=== PATIENT | female | born 1990 | race Caucasian/White ===

== ENCOUNTER 2019-03-13 07:48 | Day surgery (SDC) | payer MEDICAID ==
[~2019-03-13] VITALS: Ht 172.7 cm; Wt 62.7 kg
[2019-03-13 07:55] VITALS: BP 118/72
[2019-03-13] MEDS ORDERED: EST1T PO (08:16)
[2019-03-13] MEDS ORDERED: DICY10CA88 PO (08:17)
[2019-03-13] MEDS ORDERED: SPIR100T5 PO (08:17)
[2019-03-13] MEDS ORDERED: fentaNYL/PF 50MCG/1 ML 2ML syringe ONE (08:18)
[2019-03-13] MEDS ORDERED: MIDAZolam 5mg/5ml vial ONE (08:18)
[2019-03-13] MEDS ORDERED: LAMO200T2 PO (08:18)
[2019-03-13] MEDS ORDERED: LIDOcaine Viscous 15ml cup ONE (08:18)
[2019-03-13 10:02] VITALS: BP 114/67
[2019-03-13 10:12] VITALS: BP 100/53
[2019-03-13 10:22] VITALS: BP 109/65
[2019-03-13 10:32] VITALS: BP 107/65
== END 2019-03-13 10:35 | disposition home or self-care (01) ==
LOC: GI LAB 07:48
PROVIDERS: ATTEND Internal Medicine Gastroenterology
DX: R13.10 Dysphagia, unspecified (principal); K21.0 Gastro-esophageal reflux disease with esophagitis; Z79.899 Other long term (current) drug therapy
CPT/HCPCS: 43248; 99152; J2250; J3010; J7040; 99153; A4620; J7120

== ENCOUNTER 2020-03-13 10:51 | Day surgery (SDC) | payer MEDICAID ==
[2020-03-07 16:00] LABS: BASOPHILS # (AUTO) 0.1 X10'3 (0-0.2); BASOPHILS % (AUTO) 0.6 % (0-1); EOSINOPHILS % (AUTO) 0.4 % (0-6); LYMPHOCYTES # (AUTO) 1.5 X10'3 (1.1-4.8); LYMPHOCYTES % (AUTO) 15.9 % (21-51); MEAN CORPUSCULAR HEMOGLOBIN 30.3 PG (27.0-31.0); MEAN CORPUSCULAR HGB CONC 34.9 g/dL (33.0-36.5); MEAN CORPUSCULAR VOLUME 86.9 FL (78-98); MEAN PLATELET VOLUME 8.4 FL (7.4-10.4); MONOCYTES # (AUTO) 0.7 X10'3 (0-0.9); MONOCYTES % (AUTO) 7.9 % (2-12); NEUTROPHILS % (AUTO) 75.2 % (42-75); PRE OP HEMATOCRIT 39.4 % (35.0-45.0); PRE OP HEMOGLOBIN 13.7 g/dL (12.0-16.0); PRE OP PLATELET COUNT 241 X10'3 (140-440); RED BLOOD COUNT 4.53 X10'6 (4.20-5.60); RED CELL DISTRIBUTION WIDTH 12.9 % (11.5-14.5)
[2020-03-07 16:14] LABS: ALBUMIN 4.2 G/DL (3.4-5.0); ALBUMIN/GLOBULIN RATIO 1.1 (1.1-1.5); ALKALINE PHOSPHATASE 48 IU/L (46-116); BLOOD UREA NITROGEN 8 MG/DL (7-18); BUN/CREATININE RATIO 9.5 (6.6-38.0); CALCIUM 8.9 MG/DL (8.5-10.1); CHLORIDE 102 MMOL/L (99-107); CREATININE 0.84 MG/DL (0.40-0.90); PRE OP ALT 10 U/L (30-65); PRE OP ANION GAP 6 (8-16); PRE OP AST 18 U/L (10-37); PRE OP BILIRUB, TOTAL 0.4 MG/DL (0.0-1.0); PRE OP GLUCOSE 89 MG/DL (70-104); PRE OP POTASSIUM 4.2 MMOL/L (3.4-5.1); PRE OP SODIUM 137 MMOL/L (135-145); TOTAL CARBON DIOXIDE 28.7 MMOL/L (24-32); TOTAL PROTEIN 7.9 G/DL (6.4-8.2); eGFR 80 ML/MIN
[2020-03-13] VITALS (11 sets, daily range): BP systolic 105–130; BP diastolic 60–72
[~2020-03-13] VITALS: Ht 172.7 cm; Wt 60.0 kg
[~2020-03-13 10:51] MED LIST: BUPIVAcaine/PF 2.5 mg/ml (0.25%) 30ml vial ONE; EST1T PO; INDOCYANINE GREEN 25 MG/10 ML VIAL IV ONE; LAMO200T2 PO; LIDOcaine 1% 30ml preserv. free vial ONE; OMEP-50 PO; SPIR100T5 PO; ceFAZolin 2gm in dextrose, iso 50 ML IV ONE; famotidine 20mg tablet PO ONE; ringers solution, lacted 1,000 ML IV SCH
[2020-03-13] MEDS ORDERED: LIDOcaine 1% 30ml preserv. free vial ONE (10:56)
[2020-03-13] MEDS ORDERED: BUPIVAcaine/PF 2.5 mg/ml (0.25%) 30ml vial ONE (10:56)
[2020-03-13] MEDS ORDERED: sevoflurane 250ml liquid IH ONE (11:16)
[2020-03-13] MEDS ORDERED: midazolam 2 mg/2 ml injection ONE (11:24)
[2020-03-13] MEDS ORDERED: fentaNYL /PF 50mcg/ml 5ml ampule ONE (11:24)
[2020-03-13] MEDS ORDERED: rocuronium 10mg/ml inj IV ONE (11:40)
[2020-03-13] MEDS ORDERED: LIDOcaine 2% (20mg/ml) 5ml vial ONE (11:40)
[2020-03-13] MEDS ORDERED: propofol inj 20 ML IV ONE (11:40)
[2020-03-13] MEDS ORDERED: dexamethasone sod phosphate 4mg/ml inj. ONE (11:40)
[2020-03-13] MEDS ORDERED: ondansetron/PF 4mg/2ml inj ONE (11:40)
[2020-03-13] MEDS ORDERED: ringers solution, lacted 1,000 ML IV SCH (11:41)
[2020-03-13] MEDS ORDERED: hydrALAZINE 20mg/ml inj. IV PRN (11:45)
[2020-03-13] MEDS ORDERED: morphine 4 MG/ML inj SYRINge IV PRN (11:45)
[2020-03-13] MEDS ORDERED: acetaminophen 1,000mg/100ml IV 100 ML IV PRN (11:45)
[2020-03-13] MEDS ORDERED: labetalol 20mg/4ml (5mg/ml) syringe IV PRN (11:45)
[2020-03-13] MEDS ORDERED: morphine 2 MG/ML inj. syringe IV PRN (11:45)
[2020-03-13] MEDS ORDERED: meperidine/PF 25mg/ml syringe IV PRN (11:45)
[2020-03-13] MEDS ORDERED: ondansetron/PF 4mg/2ml inj IV PRN (11:45)
[2020-03-13] MEDS ORDERED: proCHLORperazine 10 MG/2 ml inj IV PRN (11:45)
[2020-03-13] MEDS ORDERED: HYDROmorphone inj. 0.5 MG/0.5 ML DISP.SYRIN IV PRN ×2 (11:45)
[2020-03-13] MEDS ORDERED: neostigmine methylsulfate 1 MG/ML 10ml vial ONE (12:17)
[2020-03-13] MEDS ORDERED: glycopyrrolate 0.2mg/ml inj ONE (12:17)
[2020-03-13] MEDS ORDERED: sugammadex 200mg/2ml injection IV ONE (12:35)
--- NOTE | 2020-03-13 12:46 | NUR ---
Received from OR via EDIN, accompanied by Anesthesiologist KOBI and report given by Anesthesiolgist. PT W/ 20G ANAIS VILLALTA RUNNING LR @ 100. 4 ABD BANDAIDS ALL CDI, WILL MEDICATE FOR PAIN. VSS. Addendum: 03/13/20 at 1256 by Lester Saleem RN, RN Amended: Links added.
[2020-03-13] MEDS ORDERED: HYDROcodone/acetaminophen 5mg/325mg tablet PO PRN (12:55)
== END 2020-03-13 14:20 | disposition home or self-care (01) ==
LOC: PAS 10:51
PROVIDERS: ATTEND Surgery
DX: K80.10 Calculus of gallbladder with chronic cholecystitis without obstruction (principal); F31.9 Bipolar disorder, unspecified; F41.9 Anxiety disorder, unspecified; Z88.2 Allergy status to sulfonamides; Z88.8 Allergy status to other drugs, medicaments and biological substances; F17.290 Nicotine dependence, other tobacco product, uncomplicated; Z79.899 Other long term (current) drug therapy; Z20.828 Contact with and (suspected) exposure to other viral communicable diseases; Z87.890 Personal history of sex reassignment; Z83.6 Family history of other diseases of the respiratory system; Z83.3 Family history of diabetes mellitus; Z80.3 Family history of malignant neoplasm of breast; Z82.49 Family history of ischemic heart disease and other diseases of the circulatory system
CPT/HCPCS: 36415; 47563; 80053; 82948; 85025; 87635; C9399; J0131; J1100; J1170; J2001; J2175; J2250; J2270; J2405; J2704; J2710; J3010; J3490; J7120; S2900; A4215; A4618; A7000

== ENCOUNTER 2020-03-14 01:01 | Emergency (ER) | payer MEDICAID ==
[~2020-03-14] VITALS: Ht 172.7 cm; Wt 63.3 kg
[~2020-03-14 01:01] MED LIST changes: -BUPIVAcaine/PF 2.5 mg/ml (0.25%) 30ml vial ONE; -INDOCYANINE GREEN 25 MG/10 ML VIAL IV ONE; -LIDOcaine 1% 30ml preserv. free vial ONE; -ceFAZolin 2gm in dextrose, iso 50 ML IV ONE; -famotidine 20mg tablet PO ONE; -ringers solution, lacted 1,000 ML IV SCH
[2020-03-14 01:04] VITALS: BP 110/66
--- NOTE | 2020-03-14 02:18 | NUR ---
had cancelled all labs. Pt dc to home
== END 2020-03-14 02:21 | disposition home or self-care (01) ==
LOC: ER 01:02
DX: G89.18 Other acute postprocedural pain (principal); R07.89 Other chest pain; R10.9 Unspecified abdominal pain; Z90.49 Acquired absence of other specified parts of digestive tract; Z88.8 Allergy status to other drugs, medicaments and biological substances; Z79.899 Other long term (current) drug therapy
CPT/HCPCS: 71045; 93005; 99283; 99285

== ENCOUNTER 2023-10-13 14:44 | Outpatient (CLI) | payer MEDICAID ==
[~2023-10-13 14:44] MED LIST changes: -OMEP-50 PO; +OMEP20CA16 PO
== END 2023-10-13 23:59 | disposition home or self-care (01) ==
LOC: VAS 14:44
PROVIDERS: ATTEND Family Medicine
DX: M79.604 Pain in right leg (principal); M79.605 Pain in left leg
CPT/HCPCS: 93925; 93970